=== PATIENT | female | born 1940 | race Caucasian/White ===

== ENCOUNTER 2017-07-04 19:28 | Observation (INO) ==
[2017-07-04] MEDS ORDERED: KETOROLAC 30 MG/1 ML VIAL IV STA (21:22)
[2017-07-04] MEDS ORDERED: ASPIRIN 325 MG TABLET PO STA (21:22)
[2017-07-04] MEDS ORDERED: hydrALAZINE 20 MG/1 ML VIAL IV STA ×2 (21:25→22:24)
[2017-07-04] MEDS ORDERED: KETOROLAC 30 MG/1 ML VIAL ONE (21:27)
[2017-07-04] MEDS ORDERED: ASPIRIN 325 MG TABLET ONE (21:27)
[2017-07-04] MEDS ORDERED: hydrALAZINE 20 MG/1 ML VIAL ONE ×2 (21:28→22:34)
[2017-07-04 22:23] LABS: Basophils % 0.6 % (0.0-0.8); Eosinophils # 0.2 10*3/uL (0.0-0.87); Eosinophils % 2.5 % (0.00-10.9); Hematocrit 39.6 VOL% (35.7-47.0); Hemoglobin 12.3 GM/DL (12.0-16.0); Immature Granulocytes % 0.3 %; Immature Granulocytes Absolute 0.02 #; Lymphocytes # 1.8 10*3/uL (1.4-4.0); Lymphocytes % 27.8 % (21.3-54.2); Mean Corpuscular HGB Conc 31.1 GM/DL (32-36); Mean Corpuscular Hemoglobin 29 PG (27-34); Mean Corpuscular Volume 94.3 FL (87-102); Monocytes # 0.3 10*3/uL (0.11-0.8); Monocytes % 5.2 % (1.7-12.7); Neutrophils # 4.1 10*3/uL (1.4-7.4); Neutrophils % 63.6 % (38.7-73.9); Platelet Count 265 T/CUMM (130-400); Red Cell Distribution Width 13.3 % (9.3-17.3); White Blood Count 6.5 T/CUMM (4-12)
[2017-07-04] MEDS ORDERED: LABETALOL 20 MG/4 ML SYRINGE IV STA (22:26)
[2017-07-04] MEDS ORDERED: LABETALOL 20 MG/4 ML SYRINGE IV ONE (22:34)
[2017-07-04 22:36] LABS: Albumin 4.3 G/DL (3.4-5.0); Bilirubin,Total 0.4 MG/DL (0.2-1.0); Calcium 9.6 MG/DL (8.5-10.1); Osmolality,Calculated 281.4 MOS/KG (273-304); Potassium 4.8 MMOL/L (3.5-5.1); Total Protein 7.4 G/DL (6.4-8.3)
[2017-07-05] MEDS ORDERED: ONDANSETRON 4 MG/2 ML VIAL IV PRN (00:11)
[2017-07-05] MEDS ORDERED: KETOROLAC 15 MG/1 ML VIAL IV PRN (00:21)
[2017-07-05] MEDS ORDERED: hydrALAZINE 20 MG/1 ML VIAL IV PRN (00:30)
[2017-07-05] MEDS: SODIUM CHLORIDE 0.9% 1,000 ML IV SCH ×2 (01:01→20:59)
[2017-07-05] MEDS ORDERED: NITROGLYCERIN SL 0.4 MG TABLET SL PRN (01:49)
[2017-07-05] MEDS: traMADol 50 MG TABLET PO PRN ×3 (03:46→20:59)
[2017-07-05] MEDS ORDERED: KETOROLAC 30 MG/1 ML VIAL IV ONE (06:31)
[2017-07-05 06:42] LABS: Basophils % 0.6 % (0.0-0.8); Eosinophils # 0.3 10*3/uL (0.0-0.87); Eosinophils % 3.8 % (0.00-10.9); Hematocrit 35.8 VOL% (35.7-47.0); Hemoglobin 11.6 GM/DL (12.0-16.0); Immature Granulocytes % 0.3 %; Immature Granulocytes Absolute 0.02 #; Lymphocytes # 1.9 10*3/uL (1.4-4.0); Lymphocytes % 26.8 % (21.3-54.2); Mean Corpuscular HGB Conc 32.4 GM/DL (32-36); Mean Corpuscular Hemoglobin 30 PG (27-34); Mean Corpuscular Volume 92.3 FL (87-102); Mean Platelet Volume 9.4 FL (9.6-12.0); Monocytes # 0.5 10*3/uL (0.11-0.8); Monocytes % 7.8 % (1.7-12.7); Neutrophils # 4.2 10*3/uL (1.4-7.4); Neutrophils % 60.7 % (38.7-73.9); Platelet Count 245 T/CUMM (130-400); Red Blood Count 3.88 MC/CUMM (3.8-5.5); Red Cell Distribution Width 13.6 % (9.3-17.3); White Blood Count 6.9 T/CUMM (4-12)
[2017-07-05 07:30] LABS: Alanine Aminotransferase 73 U/L (13-56); Albumin 3.6 G/DL (3.4-5.0); Alkaline Phosphatase 130 U/L (45-117); Aspartate Amino Transferase 46 U/L (0-37); Bilirubin,Total < 0.39 MG/DL (0.2-1.0); Blood Urea Nitrogen 19 MG/DL (7-18); Calcium 8.7 MG/DL (8.5-10.1); Glucose 110 MG/DL (74-106); Osmolality,Calculated 283.3 MOS/KG (273-304); Potassium 3.9 MMOL/L (3.5-5.1); Sodium 141 MMOL/L (136-145); Total Protein 6.2 G/DL (6.4-8.3)
[2017-07-05 07:41] LABS: Risk Ratio 5.38
[2017-07-05 08:00] LABS: Hepatitis A Ab IgM Quant 0.19 Index; Hepatitis A Ab IgM Result Negative (Negative); Hepatitis B Core IgM Quant 0.18 Index; Hepatitis B Core IgM Result Negative (Negative); Hepatitis B Surface Ag Quant 0.22 Index; Hepatitis B Surface Ag Result Negative (Negative); Hepatitis C Virus Ab Quant 0.04 Index; Hepatitis C Virus Ab Result Negative (Negative)
[2017-07-05] MEDS ORDERED: PNEUMOCOCCAL VACCINE (13 VALENT) 0.5 ML SYRINGE IM ONE (09:00)
[2017-07-05] MEDS: MEMANTINE 10 MG TABLET PO SCH ×2 (09:28→20:59)
[2017-07-05] MEDS: ALPRAZolam 0.5 MG TABLET PO SCH ×2 (09:28→21:00)
[2017-07-05] MEDS: LISINOPRIL 20 MG TABLET PO SCH (09:28)
[2017-07-05] MEDS: ASPIRIN EC 81 MG TABLET PO SCH (09:28)
[2017-07-05] MEDS: PANTOPRAZOLE 40 MG TABLET PO SCH (09:28)
[2017-07-05] MEDS: ENOXAPARIN 40 MG/0.4 ML SYRINGE SUBCUT SCH (09:28)
[2017-07-05 19:22] LABS: Apearance,Urine Slightly Hazy (Clear); Bacteria,Urine Moderate /HPF (Few); Bilirubin,Urine Negative (Negative); Blood, Urine Negative (Negative); Glucose,Urine (UA) Negative (Negative); Ketones,Urine Negative (Negative); Nitrite,Urine Negative (Negative); Protein,Urine Negative; RBC,Urine 7 /HPF (0-4); Squamous Epithelial Cell,Urine Occasional /HPF (0-10); Urine Color Yellow (Yellow); Urine Specific Gravity 1.005 (1.001-1.035); Urine Urobilinogen < 2.0 EU/DL (0.2-1.0); WBC,Urine 30 /HPF (0-6)
[2017-07-05] MEDS ORDERED: DONEPEZIL 10 MG TABLET PO SCH (21:00)
[2017-07-05] MEDS ORDERED: DOXEPIN 25 MG CAPSULE PO SCH (21:00)
[2017-07-06 05:32] LABS: Basophils % 0.6 % (0.0-0.8); Eosinophils # 0.2 10*3/uL (0.0-0.87); Eosinophils % 3.6 % (0.00-10.9); Hematocrit 33.3 VOL% (35.7-47.0); Hemoglobin 10.8 GM/DL (12.0-16.0); Immature Granulocytes % 0.4 %; Immature Granulocytes Absolute 0.02 #; Lymphocytes # 1.8 10*3/uL (1.4-4.0); Mean Corpuscular HGB Conc 32.4 GM/DL (32-36); Mean Corpuscular Hemoglobin 30 PG (27-34); Mean Platelet Volume 10.2 FL (9.6-12.0); Monocytes # 0.4 10*3/uL (0.11-0.8); Monocytes % 7.9 % (1.7-12.7); Neutrophils # 2.8 10*3/uL (1.4-7.4); Neutrophils % 53.5 % (38.7-73.9); Platelet Count 210 T/CUMM (130-400); Red Blood Count 3.58 MC/CUMM (3.8-5.5); Red Cell Distribution Width 13.7 % (9.3-17.3); White Blood Count 5.3 T/CUMM (4-12)
[2017-07-06 05:57] LABS: Calcium 8.3 MG/DL (8.5-10.1); Osmolality,Calculated 283.3 MOS/KG (273-304); Potassium 4.3 MMOL/L (3.5-5.1)
[2017-07-06] MEDS: MEMANTINE 10 MG TABLET PO SCH (09:23)
[2017-07-06] MEDS: LISINOPRIL 20 MG TABLET PO SCH (09:23)
[2017-07-06] MEDS: ASPIRIN EC 81 MG TABLET PO SCH (09:23)
[2017-07-06] MEDS: PANTOPRAZOLE 40 MG TABLET PO SCH (09:23)
[2017-07-06] MEDS: ALPRAZolam 0.5 MG TABLET PO SCH (09:24)
[2017-07-06] MEDS: ENOXAPARIN 40 MG/0.4 ML SYRINGE SUBCUT SCH (09:24)
[2017-07-06 10:33] VITALS: BP 123/67
== END 2017-07-06 11:57 | disposition home or self-care (01) ==
LOC: N.EDINP 19:28 → N.ED 19:28 → SUATTDRO 22:48 → N.5E 23:21
PROVIDERS: ADMIT Hospitalist; ATTEND Hospitalist

== ENCOUNTER 2018-07-28 06:50 | Inpatient (IN) ==
[2018-07-21 14:45] LABS: Basophils % 0.5 % (0.0-0.8); Eosinophils # 0.2 10*3/uL (0.0-0.87); Eosinophils % 2.7 % (0.00-10.9); Hematocrit 44.9 VOL% (35.7-47.0); Hemoglobin 13.8 GM/DL (12.0-16.0); Immature Granulocytes % 0.4 %; Immature Granulocytes Absolute 0.03 #; Lymphocytes # 2.3 10*3/uL (1.4-4.0); Lymphocytes % 29.3 % (21.3-54.2); Mean Corpuscular HGB Conc 30.7 GM/DL (32-36); Mean Corpuscular Hemoglobin 28 PG (27-34); Mean Corpuscular Volume 91.8 FL (87-102); Mean Platelet Volume 9.6 FL (9.6-12.0); Monocytes # 0.4 10*3/uL (0.11-0.8); Neutrophils # 4.8 10*3/uL (1.4-7.4); Neutrophils % 62.1 % (38.7-73.9); Platelet Count 263 T/CUMM (130-400); Red Blood Count 4.89 MC/CUMM (3.8-5.5); Red Cell Distribution Width 13.6 % (9.3-17.3); White Blood Count 7.8 T/CUMM (4-12)
[2018-07-21 15:01] LABS: Osmolality,Calculated 277.7 MOS/KG (273-304)
[~2018-07-28 06:50] MED LIST: HEPARIN/NACL 0.9% 2 UNITS/ML 500 ML IV ONE; LACTATED RINGERS 1,000 ML IV SCH; NITROGLYCERIN DRIP 50 MG/250 ML BOTTLE IV ONE; PHENYLEPHRINE DRIP 20 MG/250 ML PREMIX IV ONE; VANCOMYCIN 500 MG VIAL ONE; VANCOMYCIN INJ 500 MG in SODIUM CHLORIDE 0.9% 100 ML IV ONE
[2018-07-28] MEDS ORDERED: HEPARIN 5,000 UNIT/1 ML VIAL ONE (08:41)
[2018-07-28] MEDS ORDERED: LIDOCAINE 1% 20 ML VIAL ONE (08:42)
[2018-07-28] MEDS ORDERED: DEXTROSE 50% 25 GM/50 ML VIAL IV PRN (10:36)
[2018-07-28] MEDS ORDERED: HYDROmorphone 2 MG/1 ML VIAL IV PRN (10:36)
[2018-07-28] MEDS ORDERED: oxyCODONE/ACETAMINOPHEN 5-325 MG TABLET PO PRN (10:36)
[2018-07-28] MEDS ORDERED: NALOXONE 0.4 MG/ML VIAL IV PRN (10:36)
[2018-07-28] MEDS ORDERED: PROMETHAZINE 25 MG/1 ML VIAL IM PRN (10:36)
[2018-07-28] MEDS ORDERED: GLUCAGON 1 MG VIAL IM PRN (10:36)
[2018-07-28] MEDS ORDERED: HEPARIN 10,000 UNIT/10 ML VIAL ONE (11:09)
[2018-07-28] MEDS ORDERED: ONDANSETRON 4 MG/2 ML VIAL ONE (11:09)
[2018-07-28] MEDS ORDERED: fentaNYL 100 MCG/2 ML VIAL ONE (11:09)
[2018-07-28] MEDS ORDERED: GLYCOPYRROLATE 0.4 MG/2 ML VIAL ONE (11:09)
[2018-07-28] MEDS ORDERED: PROPOFOL 200 MG/20 ML VIAL IV ONE (11:09)
[2018-07-28] MEDS ORDERED: ONDANSETRON 4 MG/2 ML VIAL IV PRN (11:10)
[2018-07-28] MEDS ORDERED: ROCURONIUM 100 MG/10 ML VIAL IV ONE (11:10)
[2018-07-28] MEDS ORDERED: NEOSTIGMINE 10 MG/10 ML VIAL ONE (11:10)
[2018-07-28] MEDS ORDERED: PROTAMINE SULFATE 50 MG/5 ML VIAL IV ONE (11:10)
[2018-07-28] MEDS ORDERED: ePHEDrine 50 MG/ML AMP ONE (11:11)
[2018-07-28] MEDS ORDERED: SEVOFLURANE 1 UNIT/15 MINUTE INH ONE (11:11)
[2018-07-28] MEDS ORDERED: SODIUM CHLORIDE 0.9% 100 ML IV ONE (11:11)
[2018-07-28] MEDS: HYDROmorphone 2 MG/1 ML VIAL IV PRN ×5 (11:16→18:09)
[2018-07-28] MEDS ORDERED: LACTATED RINGERS 1,000 ML IV ONE (11:29)
[2018-07-28] MEDS ORDERED: SODIUM CHLORIDE 0.9% 1,000 ML IV ONE (11:30)
[2018-07-28] MEDS ORDERED: hydrALAZINE 20 MG/1 ML VIAL ONE (11:34)
[2018-07-28] MEDS: NITROPRUSSIDE 100 MG in DEXTROSE 5% 250 ML IV SCH (12:24)
[2018-07-28] MEDS: PHENYLEPHRINE DRIP 40 MG/250 ML PREMIX IV SCH (12:24)
[2018-07-28] MEDS: LACTATED RINGERS 1,000 ML IV SCH ×2 (12:25→19:30)
[2018-07-28 13:42] LABS: Alanine Aminotransferase 13 U/L (13-56); Albumin 2.9 G/DL (3.4-5.0); Alkaline Phosphatase 93 U/L (45-117); Aspartate Amino Transferase 15 U/L (0-37); Bilirubin,Indirect 0.3 MG/DL (0.0-1.0); Bilirubin,Total < 0.39 MG/DL (0.2-1.0); Total Protein 5.5 G/DL (6.4-8.3)
[2018-07-28] MEDS: oxyCODONE/ACETAMINOPHEN 5-325 MG TABLET PO PRN (14:05)
[2018-07-28] MEDS: ONDANSETRON 4 MG/2 ML VIAL IV PRN (19:55)
[2018-07-28] MEDS: DONEPEZIL 10 MG TABLET PO SCH (21:14)
[2018-07-28] MEDS: POTASSIUM CHLORIDE 10 MEQ TABLET PO SCH (21:14)
[2018-07-28] MEDS: MEMANTINE 10 MG TABLET PO SCH (21:14)
[2018-07-28] MEDS: LISINOPRIL 20 MG TABLET PO SCH (21:14)
[2018-07-28] MEDS: ALPRAZolam 0.5 MG TABLET PO SCH (21:14)
[2018-07-28] MEDS: ATORVASTATIN 40 MG TABLET PO SCH (21:15)
[2018-07-28] MEDS: METOPROLOL SUCCINATE XL 50 MG TABLET PO SCH (21:16)
[2018-07-29] MEDS: LACTATED RINGERS 1,000 ML IV SCH ×4 (00:47→17:10)
[2018-07-29] MEDS: HYDROmorphone 2 MG/1 ML VIAL IV PRN ×2 (06:40→15:08)
[2018-07-29] MEDS: ONDANSETRON 4 MG/2 ML VIAL IV PRN ×2 (06:50→08:11)
[2018-07-29] MEDS: MEMANTINE 10 MG TABLET PO SCH ×2 (08:15→21:31)
[2018-07-29] MEDS: ALPRAZolam 0.5 MG TABLET PO SCH ×2 (08:15→21:31)
[2018-07-29] MEDS: PANTOPRAZOLE 40 MG TABLET PO SCH (08:15)
[2018-07-29] MEDS: LISINOPRIL 20 MG TABLET PO SCH ×2 (08:15→21:31)
[2018-07-29] MEDS: CLOPIDOGREL 75 MG TABLET PO SCH (08:15)
[2018-07-29] MEDS: ASPIRIN EC 81 MG TABLET PO SCH (08:15)
[2018-07-29] MEDS ORDERED: ASPIRIN EC 81 MG TABLET PO SCH (09:00)
[2018-07-29] MEDS: PHENYLEPHRINE DRIP 40 MG/250 ML PREMIX IV SCH (10:46)
[2018-07-29] MEDS: NITROPRUSSIDE 100 MG in DEXTROSE 5% 250 ML IV SCH (10:46)
[2018-07-29] MEDS: DONEPEZIL 10 MG TABLET PO SCH (21:31)
[2018-07-29] MEDS: POTASSIUM CHLORIDE 10 MEQ TABLET PO SCH (21:31)
[2018-07-29] MEDS: ATORVASTATIN 40 MG TABLET PO SCH (21:31)
[2018-07-29] MEDS: METOPROLOL SUCCINATE XL 50 MG TABLET PO SCH (21:31)
[2018-07-30] MEDS: LACTATED RINGERS 1,000 ML IV SCH (03:00)
[2018-07-30] MEDS: oxyCODONE/ACETAMINOPHEN 5-325 MG TABLET PO PRN (04:03)
[2018-07-30 08:45] VITALS: BP 152/74
[2018-07-30] MEDS: CLOPIDOGREL 75 MG TABLET PO SCH (09:31)
[2018-07-30] MEDS: ALPRAZolam 0.5 MG TABLET PO SCH (09:31)
[2018-07-30] MEDS: PANTOPRAZOLE 40 MG TABLET PO SCH (09:31)
[2018-07-30] MEDS: MEMANTINE 10 MG TABLET PO SCH (09:31)
[2018-07-30] MEDS: LISINOPRIL 20 MG TABLET PO SCH (09:31)
[2018-07-30] MEDS: ASPIRIN EC 81 MG TABLET PO SCH (09:31)
[2018-07-30] MEDS: ONDANSETRON 4 MG/2 ML VIAL IV PRN (09:41)
== END 2018-07-30 13:05 | disposition home or self-care (01) | DRG 39 ==
LOC: N.SDSINP 06:50 → N.ICU 11:54 → N.3E 07-29 13:13
PROVIDERS: ADMIT Surgery; ATTEND Surgery

== ENCOUNTER 2019-04-05 15:46 | Observation (INO) ==
[2019-04-05] MEDS ORDERED: DOCUSATE SODIUM 100 MG CAPSULE PO PRN (18:03)
[2019-04-05] MEDS ORDERED: ACETAMINOPHEN 325 MG TABLET PO PRN (18:03)
[2019-04-05] MEDS ORDERED: ONDANSETRON 4 MG/2 ML VIAL IV PRN (18:03)
[2019-04-05] MEDS ORDERED: LABETALOL 20 MG/4 ML SYRINGE IV PRN (18:11)
[2019-04-05] MEDS ORDERED: NITROGLYCERIN SL 0.4 MG TABLET SL PRN (18:13)
[2019-04-05 18:41] LABS: Basophils % 0.4 % (0.0-0.8); Eosinophils # 0.1 10*3/uL (0.0-0.87); Eosinophils % 0.9 % (0.00-10.9); Hematocrit 39.4 VOL% (35.7-47.0); Hemoglobin 12.5 GM/DL (12.0-16.0); Immature Granulocytes % 0.2 %; Immature Granulocytes Absolute 0.02 #; Lymphocytes # 2.4 10*3/uL (1.4-4.0); Lymphocytes % 28.4 % (21.3-54.2); Mean Corpuscular HGB Conc 31.7 GM/DL (32-36); Mean Corpuscular Volume 92.9 FL (87-102); Mean Platelet Volume 10.6 FL (9.6-12.0); Monocytes % 5.8 % (1.7-12.7); Neutrophils % 64.3 % (38.7-73.9); Platelet Count 230 T/CUMM (130-400); Red Blood Count 4.24 MC/CUMM (3.8-5.5); Red Cell Distribution Width 14.1 % (9.3-17.3); White Blood Count 8.4 T/CUMM (4-12)
[2019-04-05 19:12] LABS: Alanine Aminotransferase 22 U/L (13-56); Albumin 3.4 G/DL (3.4-5.0); Alkaline Phosphatase 100 U/L (45-117); Aspartate Amino Transferase 27 U/L (0-37); Blood Urea Nitrogen 14 MG/DL (7-18); Calcium 9.1 MG/DL (8.5-10.1); Estimated Glom Filtration Rate 36 ML/MIN; Glucose 166 MG/DL (74-106); Osmolality,Calculated 285.3 MOS/KG (273-304); Total Protein 6.6 G/DL (6.4-8.3); Troponin I < 0.015 NG/ML (0.00-0.045)
[2019-04-05] MEDS ORDERED: POTASSIUM CHLORIDE 20 MEQ TABLET PO ONE (20:41)
[2019-04-05] MEDS ORDERED: ENOXAPARIN 80 MG/0.8 ML SYRINGE SUBCUT SCH (21:00)
[2019-04-05] MEDS ORDERED: ENOXAPARIN 40 MG/0.4 ML SYRINGE SUBCUT SCH (21:00)
[2019-04-05] MEDS: ATORVASTATIN 40 MG TABLET PO SCH (21:09)
[2019-04-05] MEDS: ALPRAZolam 0.5 MG TABLET PO SCH (21:09)
[2019-04-05] MEDS: LISINOPRIL 20 MG TABLET PO SCH (21:09)
[2019-04-05] MEDS: DONEPEZIL 10 MG TABLET PO SCH (21:09)
[2019-04-05] MEDS: METOPROLOL SUCCINATE XL 50 MG TABLET PO SCH (21:09)
[2019-04-05] MEDS: MEMANTINE 10 MG TABLET PO SCH (21:09)
[2019-04-05] MEDS: NITROGLYCERIN 0.2 MG/HR PATCH TRANSDERM SCH (21:10)
[2019-04-05 22:26] LABS: Troponin I < 0.015 NG/ML (0.00-0.045)
[2019-04-06 04:04] LABS: Apearance,Urine Slightly Hazy (Clear); Bacteria,Urine Occasional /HPF (Few); Bilirubin,Urine Negative (Negative); Blood, Urine Negative (Negative); Glucose,Urine (UA) Negative (Negative); Ketones,Urine Negative (Negative); Mucus,Urine Occasional /LPF (Occasional); Nitrite,Urine Negative (Negative); Protein,Urine 30 MG/DL; RBC,Urine 6 /HPF (0-4); Squamous Epithelial Cell,Urine Occasional /HPF (0-10); Urine Color Yellow (Yellow); Urine Specific Gravity 1.005 (1.001-1.035); Urine Urobilinogen < 2.0 EU/DL (0.2-1.0); WBC,Urine 77 /HPF (0-6)
[2019-04-06 05:01] LABS: Basophils % 0.4 % (0.0-0.8); Eosinophils # 0.1 10*3/uL (0.0-0.87); Eosinophils % 1.9 % (0.00-10.9); Hematocrit 34.2 VOL% (35.7-47.0); Immature Granulocytes % 0.3 %; Immature Granulocytes Absolute 0.02 #; Lymphocytes # 2.7 10*3/uL (1.4-4.0); Lymphocytes % 35.3 % (21.3-54.2); Mean Corpuscular HGB Conc 32.2 GM/DL (32-36); Mean Corpuscular Volume 92.2 FL (87-102); Mean Platelet Volume 10.7 FL (9.6-12.0); Monocytes % 6.8 % (1.7-12.7); Neutrophils % 55.3 % (38.7-73.9); Platelet Count 207 T/CUMM (130-400); Red Blood Count 3.71 MC/CUMM (3.8-5.5); White Blood Count 7.5 T/CUMM (4-12)
[2019-04-06 05:35] LABS: % Iron Saturation 13.4 % (18-50); Ferritin 12.2 ng/ml (8-252); Risk Ratio 2.61; VLDL CHOLESTEROL 24.4 MG/DL
[2019-04-06 05:39] LABS: Folate 3.5 NG/ML (5.4-24.0); Vitamin B12 297 PG/ML (211-911)
[2019-04-06 05:56] LABS: Calcium 8.2 MG/DL (8.5-10.1); Osmolality,Calculated 286.8 MOS/KG (273-304); Thyroid Stimulating Hormone 0.835 uIU/ml (0.358-3.74)
[2019-04-06 06:07] LABS: Sedimentation Rate-Westergren 13 MM/HR (0-30)
[2019-04-06 09:18] LABS: Troponin I < 0.015 NG/ML (0.00-0.045)
[2019-04-06 09:34] LABS: Hemoglobin A1 (Alkaline) 97.5 % (96.5-98.5); Hemoglobin A2 (Alkaline) 2.5 % (1.5-3.5)
[2019-04-06] MEDS: ASPIRIN EC 81 MG TABLET PO SCH (09:40)
[2019-04-06] MEDS: ALPRAZolam 0.5 MG TABLET PO SCH ×2 (09:40→21:40)
[2019-04-06] MEDS: NITROGLYCERIN 0.2 MG/HR PATCH TRANSDERM SCH (09:40)
[2019-04-06] MEDS: PANTOPRAZOLE 40 MG TABLET PO SCH (09:40)
[2019-04-06] MEDS: MEMANTINE 10 MG TABLET PO SCH ×2 (09:40→21:41)
[2019-04-06] MEDS: LISINOPRIL 20 MG TABLET PO SCH ×2 (09:40→21:40)
[2019-04-06] MEDS ORDERED: ENOXAPARIN 80 MG/0.8 ML SYRINGE SUBCUT SCH ×2 (13:24→21:00)
[2019-04-06] MEDS: POTASSIUM CHLORIDE 20 MEQ TABLET PO PRN ×3 (13:54→17:31)
[2019-04-06] MEDS ORDERED: ENOXAPARIN 30 MG/0.3 ML SYRINGE SUBCUT SCH (21:00)
[2019-04-06] MEDS: ATORVASTATIN 40 MG TABLET PO SCH (21:40)
[2019-04-06] MEDS: DONEPEZIL 10 MG TABLET PO SCH (21:40)
[2019-04-06] MEDS: METOPROLOL SUCCINATE XL 50 MG TABLET PO SCH (21:41)
[2019-04-07 04:54] LABS: Basophils % 0.6 % (0.0-0.8); Eosinophils # 0.1 10*3/uL (0.0-0.87); Eosinophils % 1.4 % (0.00-10.9); Hematocrit 35.5 VOL% (35.7-47.0); Hemoglobin 11.2 GM/DL (12.0-16.0); Immature Granulocytes % 0.3 %; Immature Granulocytes Absolute 0.02 #; Lymphocytes # 2.4 10*3/uL (1.4-4.0); Lymphocytes % 33.9 % (21.3-54.2); Mean Corpuscular HGB Conc 31.5 GM/DL (32-36); Mean Corpuscular Volume 92.2 FL (87-102); Mean Platelet Volume 11.4 FL (9.6-12.0); Monocytes % 6.7 % (1.7-12.7); Neutrophils % 57.1 % (38.7-73.9); Platelet Count 150 T/CUMM (130-400); Red Blood Count 3.85 MC/CUMM (3.8-5.5); Red Cell Distribution Width 13.8 % (9.3-17.3); White Blood Count 7.1 T/CUMM (4-12)
[2019-04-07 05:11] LABS: Calcium 8.6 MG/DL (8.5-10.1); Osmolality,Calculated 286.8 MOS/KG (273-304)
[2019-04-07 05:16] LABS: Hypochromasia 1+; Ovalocytes Slight
[2019-04-07] MEDS ORDERED: amLODIPine 5 MG TABLET PO SCH (09:00)
[2019-04-07] MEDS: MEMANTINE 10 MG TABLET PO SCH (09:49)
[2019-04-07] MEDS: POTASSIUM CHLORIDE 20 MEQ TABLET PO PRN (09:49)
[2019-04-07] MEDS: NITROGLYCERIN 0.2 MG/HR PATCH TRANSDERM SCH (09:50)
[2019-04-07] MEDS: PANTOPRAZOLE 40 MG TABLET PO SCH (09:50)
[2019-04-07] MEDS: ALPRAZolam 0.5 MG TABLET PO SCH (09:50)
[2019-04-07] MEDS: ASPIRIN EC 81 MG TABLET PO SCH (09:50)
[2019-04-07] MEDS: LISINOPRIL 20 MG TABLET PO SCH (09:50)
[2019-04-07 11:51] VITALS: BP 160/92
[2019-04-08] MEDS ORDERED: CHOLECALCIFEROL 1,000 UNIT TABLET PO SCH (09:00)
[2019-04-08] MEDS ORDERED: FERROUS SULFATE 325 MG TABLET PO SCH (09:00)
[2019-04-08] MEDS ORDERED: CYANOCOBALAMIN 500 MCG TABLET PO SCH (09:00)
[2019-04-08] MEDS ORDERED: FOLIC ACID 1 MG TABLET PO SCH (09:00)
== END 2019-04-07 13:48 | disposition home or self-care (01) ==
LOC: N.TELES → N.TELESOUT 15:46 → N.TELES 15:46 → N.SDSINP 15:46 → SUATTDRO 15:46 → UNDODEPREF 04-09 09:28
PROVIDERS: ADMIT Hospitalist; ATTEND Hospitalist